=== PATIENT | female | born 1980 | race American Indian/Alaskan Native ===

== ENCOUNTER 2017-09-11 10:38 | Outpatient (CLI) | payer MEDICARE ==
--- NOTE | 2017-09-11 15:14 | Mammography Report ---
BILATERAL DIGITAL SCREENING MAMMOGRAM WITH CAD:09/11/17 CLINICAL: Baseline screening.The patient did report bilateral milky discharge which is manually expressed. FINDINGS: The breasts are almost entirely fatty.No mass, architectural distortion or suspicious calcifications. IMPRESSION: Normal mammogram. BI-RADS CATEGORY: 1 -- Negative RECOMMENDATION: Clinical followup and routine mammographic screening based on ACS guidelines. ACR BI-RADS MAMMOGRAPHIC CODES: 0 = Needs additional imaging evaluation; 1 = Negative; 2 = Benign; 3 = Probably benign; 4 = Suspicious; 5 = Malignant; 6 = Known biopsy-proven malignancy COMMENT: 1. Dense breast tissue, i.e., adenosis, fibrocystic changes, etc., may obscure an underlying neoplasm. 2. Approximately 10% of cancers are not detected with mammography. 3. A negative mammography report should not delay biopsy if a clinically suspicious mass is present.
--- NOTE | 2017-09-11 15:18 | Ultrasound Report ---
BILATERAL BREAST ULTRASOUND: 09/11/17 10:38:00 CLINICAL: Bilateral milky nipple discharge which is only present upon manual expression. COMPARISON: Today's negative bilateral screening mammogram. FINDINGS: Ultrasound of both breasts(including all four quadrants and the retroareolar area) was performed and demonstrated normal fatty and fibroglandular structures. No mass, cyst or shadowing. IMPRESSION: Normal bilateral breast ultrasound. BI-RADS 1 - - Negative RECOMMENDATION: Clinical followup and routine mammographic screening based on ACS guidelines.
== END 2017-09-11 10:39 | disposition home or self-care (01) ==
LOC: US 10:38
PROVIDERS: ATTEND Family Medicine
DX: N64.52 Nipple discharge (principal); R92.8 Other abnormal and inconclusive findings on diagnostic imaging of breast
CPT/HCPCS: 77067

== ENCOUNTER 2018-09-12 10:40 | Outpatient (CLI) | payer MEDICARE ==
--- NOTE | 2018-09-12 14:56 | Mammography Report ---
BILATERAL DIGITAL SCREENING MAMMOGRAM with CAD: 09/12/18 10:40:00 CLINICAL: Routine screening. COMPARISON:09/11/17 FINDINGS: The breasts are almost entirely fatty. No mass, architectural distortion or suspicious calcifications. IMPRESSION: No mammographic evidence of malignancy. BI-RADS CATEGORY: 1 - - Negative RECOMMENDATION: Routine mammographic screening in one year. COMMENT: Patient follow-up letters are generated by our [employer] application.
== END 2018-09-12 10:41 | disposition home or self-care (01) ==
LOC: MAMMO 10:40
PROVIDERS: ATTEND Family Medicine
DX: Z12.31 Encounter for screening mammogram for malignant neoplasm of breast (principal)
CPT/HCPCS: 77067